=== PATIENT | male | born 1940 | race Caucasian/White ===

== ENCOUNTER 2018-01-22 09:48 | Emergency (ER) | payer MEDICARE, SELFPAY ==
[2018-01-22] VITALS (9 sets, daily range): BP systolic 108–136; BP diastolic 62–94; PULSE 55–85; RESP 13–17; TEMP 36.9; O2SAT 98–100; BMI 22.9
--- NOTE | 2018-01-22 09:56 | DI.RAD.S_ITS ---
PROCEDURE: XR CHEST 1V INDICATIONS: chest pain TECHNIQUE: One view of the chest was acquired. COMPARISON: [facility], CT, THORAX WITHOUT CONTRAST, 11/12/2016, 10:46. [facility], CR, CHEST 1 VIEW, 10/08/2016, 7:42. [facility], CR, CHEST 1 VIEW, 09/23/2016, 10:32. [facility], CR, CHEST 1 VIEW, 09/16/2016, 16:35. [facility], CR, CHEST 2 VIEW, 06/16/2013, 12:23. [facility], CR, CHEST 1 VIEW, 01/16/2011, 15:13. [facility], RG, XR CXR 2 VIEW, 10/17/2005, 15:46. [facility], CHEST 1 VIEW, 06/10/2017, 21:17. FINDINGS: Surgical changes and devices: None. Lungs and pleura: No pleural effusions or pneumothorax. Mild increased pulmonary vascularity is present. Mediastinum: Mediastinal contours appear normal. Heart size is normal. Bones and chest wall: No suspicious bony lesions. Overlying soft tissues appear unremarkable. IMPRESSION: Mild increased pulmonary vascularity suggestive of edema. Dictated by: Abby Hines M.D. on 01/22/2018 at 10:22 Approved by: Abby Hines M.D. on 01/22/2018 at 10:27
[2018-01-22] MEDS: SODIUM CHLORIDE 0.9% 1,000 ML 150 ML IV (10:28)
[2018-01-22] MEDS: ASPIRIN 81 MG TAB 324 MG PO (10:28)
[2018-01-22 10:29] LABS: Add Manual Diff / Slide Review NO; Basophils Percent Auto 1.4 % (0-2); Eosinophils Percent Auto 1.8 % (2-4); Hematocrit 42.9 % (41-53); Hemoglobin 14.9 g/dL (13.5-17.5); Lymphocytes Percent Auto 26.7 % (25-40); Mean Corpuscular HGB Conc 34.9 % (30-36); Mean Corpuscular Hemoglobin 33.1 PG (26-34); Mean Corpuscular Volume 94.8 fL (80-100); Monocytes Percent Auto 12.4 % (3-14); Neutrophils Absolute Auto 2600 /uL (3000-5900); Neutrophils Percent Auto 57.7 % (50-75); Platelet Count 197 X10^3/uL (150-400); Red Blood Cell Count 4.52 X10^6/uL (4.5-5.9); Red Cell Distribution Width 13.3 % (11.6-14.8); White Blood Cell Count 4.5 X10^3/uL (4.5-11.0)
[2018-01-22 10:40] LABS: HEMOLYSIS 25 (0-50)
[2018-01-22] MEDS: NITROGLYCERIN 0.4 MG SL TAB SL ×3 (10:40→11:08)
[2018-01-22 10:47] LABS: Alanine Aminotransferase 34 IU/L (21-72); Albumin 3.8 g/dL (3.5-5.0); Albumin Globulin Ratio 1.5 (1.0-2.8); Alkaline Phosphatase 54 U/L (38-126); Aspartate Aminotransferase 40 IU/L (17-59); BUN Creatinine Ratio 21.1 (6-22); Bilirubin Total 0.6 mg/dL (0.2-1.3); Calcium 8.9 mg/dL (8.4-10.2); Creatine Kinase 64 U/L (55-170); Estimated Glomerular Filt Rate > 60.0 mL/min (>60); Globulin 2.6 g/dL (1.7-4.1); Glucose 82 mg/dL (80-110); Lipase 158 U/L (23-300); Potassium 4.1 mmol/L (3.4-5.1); Sodium 139 mmol/L (137-145); Total Protein 6.4 g/dL (6.3-8.2)
--- NOTE | 2018-01-22 10:51 | PC.NURSE ---
Right sided chest tightness decreased to #4/10 after NTG 0.4mg SL
[2018-01-22 11:01] LABS: Troponin I < 0.012 ng/mL (0.01-0.034)
--- NOTE | 2018-01-22 11:50 | PC.NURSE ---
No change in chest tightness with second dose of NTG 0.4mg SL;
--- NOTE | 2018-01-22 11:52 | PC.NURSE ---
No change in chest tightness with third NTG 0.4mg SL;
--- NOTE | 2018-01-22 12:54 | ED_ITS ---
HPI - Chest Pain General Chief Complaint: Chest Pain Stated Complaint: chest pain Time Seen by Provider: 01/22/18 09:55 Source: patient Mode of arrival: ambulatory Limitations: no limitations History of Present Illness HPI narrative: Patient with longstanding cardiac history presents to the emergency department with chief complaint of chest pain with radiation to right shoulder which started while mowing the grass 2 days ago. At worst it was a 6 or 7/10 and continues to be a 5/10. He took some nitro at home yesterday which helped some but the pressure persists. His last heart catheterization was about a year ago when he had a stent placed at [facility] and a reocclusion of that stent about 2 months later. He has had no cardiac evaluation since then. He does admit to increasing exercise intolerance with worsening shortness of breath over about the past 4 months. Related Data Home Medications Medication Instructions Recorded Confirmed atorvastatin [Lipitor] 80 mg PO QPM #0 09/23/16 01/22/18 metoprolol succinate 50 mg PO QDAY #0 10/08/16 01/22/18 nitroglycerin [Nitrostat] 0.4 mg SUBLINGUAL PRN PRN #0 10/08/16 01/22/18 aspirin 81 mg PO QDAY #0 10/20/17 01/22/18 clopidogrel [Plavix] 75 mg PO QDAY #0 10/20/17 01/22/18 isosorbide dinitrate [Isordil 5 mg PO TID PRN #0 10/20/17 01/22/18 Titradose] omeprazole 20 mg PO BID #0 10/20/17 01/22/18 tamsulosin [Flomax] 0.4 mg PO QAM #0 10/20/17 01/22/18 Allergies Allergy/AdvReac Type Severity Reaction Status Date / Time No Known Allergies Allergy Verified 01/22/18 09:59 Review of Systems Review of Systems All systems reviewed & are unremarkable except as noted in HPI and below Constitutional Denies chills, Denies fever(s), Denies lethargy and Denies weakness ENT Ears, Nose, Mouth, and Throat: Denies change in voice, Denies neck pain and Denies sore throat Cardiovascular Reports chest pain, Denies irregular heart rhythm, Denies lightheadedness, Denies palpitations, Denies dyspnea, Denies dyspnea on exertion and Denies orthopnea Respiratory Denies cough, Denies dyspnea, Denies dyspnea on exertion and Denies wheezing Gastrointestinal Gastrointestinal: Denies abdominal pain, Denies change in bowel habits, Denies diarrhea, Denies nausea and Denies vomiting Genitourinary Denies hematuria, Denies flank pain, Denies urinary incontinence and Denies urinary urgency Musculoskeletal Denies neck pain Integumentary/Breasts Denies pruritus, Denies erythema, Denies rash and Denies wounds Neurologic Denies confusion and Denies weakness Psychiatric Denies anxiety, Denies confusion, Denies depression, Denies homicidal ideation and Denies suicidal ideation Endocrine Denies palpitations Allergic/Immunologic Denies wheezing PFSH Social History Smoking Status: Former smoker Exam Narrative Exam Narrative: Pleasant 77-year-old male in no obvious distress Initial Vital Signs Initial Vital Signs: Vital Signs Temperature 98.4 F 01/22/18 09:54 Pulse Rate 65 01/22/18 09:54 Respiratory Rate 14 01/22/18 09:54 Blood Pressure 136/72 H 01/22/18 09:54 Pulse Oximetry 100 01/22/18 09:54 Const General: cooperative and well developed Nutritional Appearance: well nourished Orientation: alert, awake, oriented x3 and not confused [facility] Head: normocephalic and atraumatic Ears: external ears normal and TM's normal bilaterally Nose: external nose normal and No nasal discharge Face and sinus: sinuses nontender, face symmetric, no sinus tenderness and No dry mucous membranes Mouth: oral mucosae normal and moist mucous membranes Teeth and gingiva: dentition normal Throat: tonsils normal and uvula midline Eyes General: appearance normal, both eyes and all related structures Eyelids: eyelids normal Conjunctivae: conjunctivae normal Sclera: sclerae normal Pupils: PERRL EOM: EOM intact bilaterally Chest Chest: normal inspection of the chest and normal palpation of entire chest wall Resp Effort & Inspection: normal respiratory effort, able to speak in complete sentences, no respiratory distress and no use of accessory muscles Auscultation: clear to auscultation bilaterally, no rales, no rhonchi and no wheezes Cardio Rate: regular rate Rhythm: regular rhythm Heart Sounds: no click, no gallops, no murmurs and no rubs Pulses: normal peripheral pulses Back/Spine/Pelvis Back: No CVA tenderness Cervical Spine: cervical ROM normal and No pain with cervical ROM Thoracic/Lumbar Spine: thoracic and lumbar spine normal to inspection Skin General: no rashes or lesions noted, No jaundice and No petechiae Neuro General: alert, oriented x3 and gait normal Speech: speech normal Sensory Exam: no sensory deficits noted Extrem General: full ROM, no clubbing, cyanosis or edema, no pedal edema and no calf tenderness Psych Appearance: well kempt Mental Status: mental status grossly normal Attitude: cooperative Thought Content: normal and suicidality Judgment: judgment good Course Orders Ordered: ED Orders 01/22/18 09:56 XR chest 1V Stat EKG-12 Lead Stat 01/22/18 10:20 Complete Blood Count AUTO DIFF Stat Comprehensive Metabolic Panel Stat Lipase Stat Magnesium Stat Troponin with CK Cardiac Panel Stat Discontinued Medications Aspirin (Aspirin Chew) 324 mg PO NOW ONE Stop: 01/22/18 09:56 Last Admin: 01/22/18 10:28 Dose: 324 mg Sodium Chloride (Normal Saline 0.9%) 1,000 mls @ 150 mls/hr IV CONT PADDY Last Infusion: 01/22/18 11:53 Dose: 0 mls/hr Admin: 01/22/18 10:28 Dose: 150 mls/hr Morphine Sulfate (Morphine) 4 mg IV NOW ONE Stop: 01/22/18 11:58 Last Admin: 01/22/18 11:59 Dose: Not Given Nitroglycerin (Nitrostat) 0.4 mg SL [id number] PRN PRN Reason: Chest Pain Last Admin: 01/22/18 11:08 Dose: 0.4 mg Admin: 01/22/18 10:53 Dose: 0.4 mg Admin: 01/22/18 10:40 Dose: 0.4 mg Reevaluation(s) Reevaluation #1: Patient pain from 6 down to 4 after 1st nitro Time: 10:56 Reevaluation #2: Discussion with Cardiology at [facility] whom know this patient well. We discussed the case at length including onset as well as other symptoms, complaints and physical exam. His symptoms have been present 2 days any has normal troponin and unchanged EKGs. Cardiology recommended outpatient stress test and will coordinate with the patient in the next 1-2 days Time: 12:56 Vital Signs - 8 hr 01/22/18 09:54 01/22/18 10:19 01/22/18 10:40 Temperature 98.4 F Pulse Rate 65 61 65 Respiratory Rate 14 13 Blood Pressure 136/72 H 130/94 H Blood Pressure [Left Arm] 128/76 H Pulse Oximetry 100 99 01/22/18 10:52 01/22/18 10:53 01/22/18 11:08 Temperature Pulse Rate 85 85 55 L Respiratory Rate 16 Blood Pressure 117/64 111/63 Blood Pressure [Left Arm] 117/63 Pulse Oximetry 100 01/22/18 11:35 01/22/18 12:33 01/22/18 13:22 Temperature Pulse Rate 58 L 55 L 60 Respiratory Rate 13 17 16 Blood Pressure 123/80 H Blood Pressure [Left Arm] 108/62 123/80 H Pulse Oximetry 100 98 98 MDM - Chest Pain Differential Diagnosis Likely stable angina, unstable angina pectoris, atypical chest pain, st elevation myocardial infarction, costochondritis and chest pain Medical Records Data Attestation: I reviewed the patient's medical records. Lab Data Result diagrams: 01/22/18 10:20 01/22/18 10:20 Lab Results 01/22/18 01/22/18 Range/Units 10:20 10:20 WBC 4.5 (4.5-11.0) X10^3/uL RBC 4.52 (4.5-5.9) X10^6/uL Hgb 14.9 (13.5-17.5) g/dL Hct 42.9 (41-53) % MCV 94.8 (80-100) fL MCH 33.1 (26-34) PG MCHC 34.9 (30-36) % RDW 13.3 (11.6-14.8) % Plt Count 197 (150-400) X10^3/uL Neut % (Auto) 57.7 (50-75) % Lymph % (Auto) 26.7 (25-40) % [place] % (Auto) 12.4 (3-14) % Eos % (Auto) 1.8 L (2-4) % Baso % (Auto) 1.4 (0-2) % Neut # (Auto) 2600 L (9158-4684) /uL Sodium 139 (137-145) mmol/L Potassium 4.1 (3.4-5.1) mmol/L Chloride 103.0 (98-107) mmol/L Carbon Dioxide 28.0 (22-32) mmol/L BUN 19.0 (9-20) mg/dL Creatinine 0.90 (0.66-1.25) mg/dL Estimated GFR > 60.0 (>60) mL/min BUN/Creatinine Ratio 21.1 (6-22) Glucose 82 (80-110) mg/dL Calcium 8.9 (8.4-10.2) mg/dL Magnesium 2.0 (1.6-2.3) mg/dL Total Bilirubin 0.6 (0.2-1.3) mg/dL AST 40 (17-59) IU/L ALT 34 (21-72) IU/L Alkaline Phosphatase 54 (38-126) U/L Total Creatine Kinase 64 (55-170) U/L Troponin I < 0.012 (0.01-0.034) ng/mL Total Protein 6.4 (6.3-8.2) g/dL Albumin 3.8 (3.5-5.0) g/dL Globulin 2.6 (1.7-4.1) g/dL Albumin/Globulin Ratio 1.5 (1.0-2.8) Lipase 158 (23-300) U/L ECG Data Attestation: I personally reviewed and interpreted this ECG as follows: Prior ECG tracings: not available for review Interpretation: Normal sinus rhythm without obvious signs of ischemia or ectopy. No ST segmental or T-wave inversions. No hyperacute T-waves EKG #2: unchanged MDM Narrative Medical decision making narrative: Patient has had chest pain for 2 days and still has normal enzymes and EKG. His auto phone installer will see him as an outpatient in the next 1-2 days for outpatient stress test Discharge Plan Departure Patient Disposition: Home, Self-Care Clinical Impression: Chest pain Discharge Date/Time: 01/22/18 13:23 Interventions: ED Discharge Assessment Last Done: 01/22/18 13:22 Instructions: DI for Chest Pain Activity Restrictions/Additional Instructions: I spoke with your auto phone installer today and his office will contact you today or tomorrow to schedule an outpatient stress test. Additionally he wanted me to increase your isosorbide from 5 mg 3 times a day up to 10 mg 3 times per day. Please take other medications as directed Please return to the emergency department immediately for any worsening or persistent symptoms Prescriptions: No Action atorvastatin [Lipitor] 80 MG tablet 80 mg PO QPM Qty: 0 RF: 0 metoprolol succinate 50 MG tablet extended release 24 hr 50 mg PO QDAY Qty: 0 RF: 0 nitroglycerin [Nitrostat] 0.4 MG tablet, sublingual 0.4 mg Sublingual PRN PRN (Reason: Chest Pain) Qty: 0 RF: 0 omeprazole 20 MG capsule,delayed release(DR/EC) 20 mg PO BID Qty: 0 RF: 0 clopidogrel [Plavix] 75 MG tablet 75 mg PO QDAY Qty: 0 RF: 0 aspirin 81 MG tablet,delayed release (DR/EC) 81 mg PO QDAY Qty: 0 RF: 0 tamsulosin [Flomax] 0.4 MG capsule,extended release 24hr 0.4 mg PO QAM Qty: 0 RF: 0 isosorbide dinitrate [Isordil Titradose] 5 MG tablet 5 mg PO TID PRN (Reason: Chest Pain) Qty: 0 RF: 0
== END 2018-01-22 13:23 | disposition home or self-care (01) ==
PROVIDERS: Emergency Provider Emergency Medicine; Family Provider Family Medicine; PCP Family Medicine
DX: R07.9 Chest pain, unspecified (principal)
CPT/HCPCS: 36591; 71045; 80053; 81003; 82550; 82553; 83690; 83735; 84484; 85025; 93005; 93041; 96361; 96374; 99285

== ENCOUNTER 2018-10-13 10:42 | Emergency (ER) | payer MEDICARE, SELFPAY ==
[2018-10-13 10:47] VITALS: BP 147/86; PULSE 61; RESP 13; TEMP 36.3; O2SAT 99
[2018-10-13 10:54] VITALS: BP 160/85; PULSE 61; RESP 12; TEMP 36.5; O2SAT 100
--- NOTE | 2018-10-13 10:54 | DI.RAD.S_ITS ---
PROCEDURE: XR CHEST 1V INDICATIONS: chest pain TECHNIQUE: One view of the chest was acquired. COMPARISON: [facility], CR, XR CHEST 1V, 01/22/2018, 9:59. FINDINGS: Surgical changes and devices: None. Lungs and pleura: Lungs are clear. No pleural effusions or pneumothorax. Mediastinum: Mediastinal contours appear normal. Heart size is normal. There is mild aortic atherosclerosis. Bones and chest wall: No suspicious bony lesions. Overlying soft tissues appear unremarkable. IMPRESSION: Stable chest. No acute cardiopulmonary process is evident. Dictated by: Aram Matias M.D. on 10/13/2018 at 10:15 Approved by: Aram Matias M.D. on 10/13/2018 at 10:15
[2018-10-13 11:10] LABS: Add Manual Diff / Slide Review NO; Basophils Absolute Auto 100 /uL (0-100); Basophils Percent Auto 1.2 % (0-2); Eosinophils Absolute Auto 100 /uL (0-450); Eosinophils Percent Auto 1.2 % (2-4); Hematocrit 42.7 % (41-53); Hemoglobin 14.4 g/dL (13.5-17.5); Lymphocytes Absolute Auto 1400 /uL (1100-4500); Lymphocytes Percent Auto 27.1 % (25-40); Mean Corpuscular HGB Conc 33.8 % (30-36); Mean Corpuscular Volume 94.6 fL (80-100); Monocytes Absolute Auto 400 /uL (0-900); Monocytes Percent Auto 7.6 % (3-14); Neutrophils Absolute Auto 3300 /uL (1500-7000); Neutrophils Percent Auto 62.9 % (50-75); Platelet Count 223 X10^3/uL (150-400); Red Blood Cell Count 4.51 X10^6/uL (4.5-5.9); Red Cell Distribution Width 12.9 % (11.6-14.8); White Blood Cell Count 5.3 X10^3/uL (4.5-11.0)
[2018-10-13 11:18] LABS: INR 1.1 (0.9-1.3); Prothrombin Time 12.3 SECONDS (10.1-12.7)
[2018-10-13 11:21] LABS: Alanine Aminotransferase 34 IU/L (21-72); Albumin 4.3 g/dL (3.5-5.0); Albumin Globulin Ratio 1.8 (1.0-2.8); Alkaline Phosphatase 51 U/L (38-126); Aspartate Aminotransferase 32 IU/L (17-59); Bilirubin Total 0.4 mg/dL (0.2-1.3); Blood Urea Nitrogen 24 mg/dL (9-20); Calcium 9.2 mg/dL (8.4-10.2); Carbon Dioxide 27 mmol/L (22-32); Chloride 104 mmol/L (98-107); Creatine Kinase 70 U/L (55-170); Estimated Glomerular Filt Rate > 60.0 mL/min (>60); Globulin 2.4 g/dL (1.7-4.1); Glucose 92 mg/dL (80-110); HEMOLYSIS 21 (0-50); Lipase 176 U/L (23-300); PTT Partial Thromboplastin Tim 29 SECONDS (26.4-36.2); Potassium 3.9 mmol/L (3.4-5.1); Sodium 138 mmol/L (137-145); Total Protein 6.7 g/dL (6.3-8.2)
--- NOTE | 2018-10-13 11:30 | ED.CHESTPAIN ---
HPI - Chest Pain General Chief Complaint: Chest Pain Stated Complaint: CHEST PAIN Time Seen by Provider: 10/13/18 10:50 Source: patient Mode of arrival: ambulatory Limitations: no limitations History of Present Illness HPI narrative: 77-year-old male with known cardiac history presents at the request of his yeast fermentation attendant for evaluation and stabilization of worsening cardiac type symptoms. The patient states that for the past 2 weeks or so he has had increasing chest pain with exertion and now chest pain at rest. His pain radiates to his right and sometimes left shoulder. He mowed the lawn a few days ago and took him nearly 3 hr to recuperate. He had been taking multiple nitro per day which in the end did help his pain. He was seen by his yeast fermentation attendant a few days ago and started on long-acting nitro which is providing little to no relief. He presents today with 7/10 anterior chest pressure with radiation to his right shoulder. He denies any current dizziness diaphoresis or vomiting. MD complaint: chest pain Onset (ago): week(s) Duration: intermittent Onset: during rest and during exertion Pain location: substernal Severity scale (1-10): 7 Quality: aching and heaviness Pain radiation: RUE Relieving factors: nothing Exacerbating factors: exertion Treatments prior to arrival chest pain: aspirin and nitroglycerin Related Data Home Medications Medication Instructions Recorded Confirmed atorvastatin [Lipitor] 80 mg PO BEDTIME #0 09/23/16 10/13/18 metoprolol succinate 25 mg PO DAILY #0 10/08/16 10/13/18 nitroglycerin [Nitrostat] 0.4 mg SUBLINGUAL PRN PRN #0 10/08/16 10/13/18 aspirin 81 mg PO DAILY #0 10/20/17 10/13/18 clopidogrel [Plavix] 75 mg PO DAILY #0 10/20/17 10/13/18 isosorbide dinitrate [Isordil 5 mg PO BID #0 10/20/17 10/13/18 Titradose] omeprazole 20 mg PO DAILY #0 10/20/17 10/13/18 tamsulosin [Flomax] 0.4 mg PO QPM #0 10/20/17 10/13/18 Allergies Allergy/AdvReac Type Severity Reaction Status Date / Time No Known Allergies Allergy Verified 01/22/18 09:59 Review of Systems Constitutional Denies chills, Denies fever(s), Denies lethargy and Denies weakness Eyes Denies change in vision, Denies eye discharge, Denies irritation and Denies loss of vision ENT Ears, Nose, Mouth, and Throat: Denies change in voice, Denies neck pain and Denies sore throat Cardiovascular Reports chest pain, Denies irregular heart rhythm, Denies lightheadedness, Denies palpitations, Denies dyspnea, Denies dyspnea on exertion and Denies orthopnea Respiratory Denies cough, Denies dyspnea, Denies dyspnea on exertion and Denies wheezing Gastrointestinal Gastrointestinal: Denies abdominal pain, Denies change in bowel habits, Denies diarrhea, Denies nausea and Denies vomiting Genitourinary Denies hematuria, Denies flank pain, Denies urinary incontinence and Denies urinary urgency Musculoskeletal Denies neck pain Integumentary/Breasts Denies pruritus, Denies erythema, Denies rash and Denies wounds Neurologic Denies confusion, Denies loss of vision and Denies weakness Psychiatric Denies anxiety, Denies confusion, Denies depression, Denies homicidal ideation and Denies suicidal ideation Endocrine Denies palpitations Hematologic/Lymphatic Denies easy bruising Allergic/Immunologic Denies wheezing [facility] Social History Smoking Status: Former smoker Social History Smoking Status: Former smoker Exam Narrative Exam Narrative: GENERAL: This is a well-nourished, well-developed patient, in mild distress. HEAD: Atraumatic. Normocephalic. No temporal or scalp tenderness. EYES: Pupils equal round and reactive. Extraocular motions intact. No scleral icterus. No injection or drainage. ENT: Nose without bleeding, purulent drainage or septal hematoma. Throat without erythema, tonsillar hypertrophy or exudate. Uvula midline. Airway patent. NECK: Trachea midline. No JVD or lymphadenopathy. Supple, nontender, no meningeal signs. CARDIOVASCULAR: Regular rate and rhythm without murmurs, gallops, or rubs. RESPIRATORY: Clear to auscultation. Breath sounds equal bilaterally. No wheezes, rales, or rhonchi. GASTROINTESTINAL: Abdomen soft, non-tender, nondistended. No hepato-splenomegaly, or palpable masses. No guarding. EXTREMITIES: No clubbing, cyanosis, or edema. No joint tenderness, effusion, or edema noted. BACK: Nontender without deformity or crepitance. No flank tenderness. NEURO: AOx3. SKIN: No rash or erythema. Initial Vital Signs Initial Vital Signs: Vital Signs Temperature 97.3 F L 10/13/18 10:47 Pulse Rate 61 10/13/18 10:47 Respiratory Rate 13 10/13/18 10:47 Blood Pressure 147/86 H 10/13/18 10:47 Pulse Oximetry 99 10/13/18 10:47 Course Orders Ordered: ED Orders 10/13/18 10:48 EKG-12 Lead Stat 10/13/18 10:54 XR chest 1V Stat 10/13/18 11:00 Complete Blood Count AUTO DIFF Stat Comprehensive Metabolic Panel Stat Lipase Stat Partial Thromboplastin Time Stat Prothrombin Time INR Stat Troponin & CK Cardiac Panel Stat 10/13/18 12:03 EKG-12 Lead Routine Discontinued Medications Heparin Sodium (Porcine) (Heparin) 6,000 unit 80 unit/kg (6000 unit) IV NOW ONE Stop: 10/13/18 11:53 Last Admin: 10/13/18 12:20 Dose: 6,000 unit Nitroglycerin (Nitroglycerin) 50 mg in 250 mls @ 1.5 mls/hr IV TITRATE PADDY; Protocol Last Titration: 10/13/18 15:13 Dose: 5 mcg/min, 1.5 mls/hr Admin: 10/13/18 12:57 Dose: 5 mcg/min, 1.5 mls/hr Sodium Chloride (Normal Saline 0.9%) 500 mls @ 21 mls/hr IV CONT PADDY Last Admin: 10/13/18 13:17 Dose: Reevaluation(s) Reevaluation #1: patient continues to have pain. Second IV, heparin/nitro ordered. Second EKG. Call to [facility] with need for transfer Consultations Consultation #1: call to cardio at [facility] whom are happy to accept and request NG drip, but state Heparin does not need to be continued Vital Signs - 8 hr 10/13/18 14:18 10/13/18 14:19 Pulse Rate 61 Blood Pressure [Left Arm] 133/93 H Pulse Oximetry 100 MDM - Chest Pain Lab Data Result diagrams: 10/13/18 11:00 10/13/18 11:00 Lab Results 10/13/18 10/13/18 10/13/18 Range/Units 11:00 11:00 11:00 WBC 5.3 (4.5-11.0) X10^3/uL RBC 4.51 (4.5-5.9) X10^6/uL Hgb 14.4 (13.5-17.5) g/dL Hct 42.7 (41-53) % MCV 94.6 (80-100) fL MCH 32.0 (26-34) PG MCHC 33.8 (30-36) % RDW 12.9 (11.6-14.8) % Plt Count 223 (150-400) X10^3/uL Neut % (Auto) 62.9 (50-75) % Lymph % (Auto) 27.1 (25-40) % [place] % (Auto) 7.6 (3-14) % Eos % (Auto) 1.2 L (2-4) % Baso % (Auto) 1.2 (0-2) % Neut # (Auto) 3300 (7500-5659) /uL Lymph # (Auto) 1400 (2457-3383) /uL [place] # (Auto) 400 (0-900) /uL Eos # (Auto) 100 (0-450) /uL Baso # (Auto) 100 (0-100) /uL PT 12.3 (10.1-12.7) SECONDS INR 1.1 (0.9-1.3) APTT 29 (26.4-36.2) SECONDS Sodium 138 (137-145) mmol/L Potassium 3.9 (3.4-5.1) mmol/L Chloride 104 (98-107) mmol/L Carbon Dioxide 27 (22-32) mmol/L BUN 24 H (9-20) mg/dL Creatinine 1.00 (0.66-1.25) mg/dL Estimated GFR > 60.0 (>60) mL/min BUN/Creatinine Ratio 24.0 H (6-22) Glucose 92 (80-110) mg/dL Calcium 9.2 (8.4-10.2) mg/dL Total Bilirubin 0.4 (0.2-1.3) mg/dL AST 32 (17-59) IU/L ALT 34 (21-72) IU/L Alkaline Phosphatase 51 (38-126) U/L Total Creatine Kinase 70 (55-170) U/L CK-MB (CK-2) TNP CK-MB (CK-2) Rel Index TNP Troponin I < 0.012 (0.01-0.034) ng/mL Total Protein 6.7 (6.3-8.2) g/dL Albumin 4.3 (3.5-5.0) g/dL Globulin 2.4 (1.7-4.1) g/dL Albumin/Globulin Ratio 1.8 (1.0-2.8) Lipase 176 (23-300) U/L Discharge Plan Departure Patient Disposition: [facility] Clinical Impression: Unstable angina Discharge Date/Time: 10/13/18 15:15 Interventions: ED Discharge Assessment Last Done: 10/13/18 15:15 Prescriptions: No Action atorvastatin [Lipitor] 80 MG tablet 80 mg PO BEDTIME Qty: 0 RF: 0 metoprolol succinate 50 MG tablet extended release 24 hr 25 mg PO DAILY Qty: 0 RF: 0 nitroglycerin [Nitrostat] 0.4 MG tablet, sublingual 0.4 mg Sublingual PRN PRN (Reason: Chest Pain) Qty: 0 RF: 0 omeprazole 20 MG capsule,delayed release(DR/EC) 20 mg PO DAILY Qty: 0 RF: 0 clopidogrel [Plavix] 75 MG tablet 75 mg PO DAILY Qty: 0 RF: 0 aspirin 81 MG tablet,delayed release (DR/EC) 81 mg PO DAILY Qty: 0 RF: 0 tamsulosin [Flomax] 0.4 MG capsule,extended release 24hr 0.4 mg PO QPM Qty: 0 RF: 0 isosorbide dinitrate [Isordil Titradose] 5 MG tablet 5 mg PO BID Qty: 0 RF: 0
[2018-10-13 11:33] LABS: Troponin I < 0.012 ng/mL (0.01-0.034)
--- NOTE | 2018-10-13 11:35 | ED_ITS ---
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 The patient states that for the past 2 weeks or so he has had increasing chest pain with exertion and now chest pain at rest. His pain radiates to his right and sometimes left shoulder. He mowed the lawn a few days ago and took him nearly 3 hr to recuperate. He had been taking multiple nitro per day which in the end did help his pain. He was seen by his office mail clerk a few days ago and started on long-acting nitro which is providing little to no relief. He presents today with 7/10 anterior chest pressure with radiation to his right shoulder. He denies any current dizziness diaphoresis or vomiting. MD complaint: chest pain Onset (ago): week(s) Duration: intermittent Onset: during rest and during exertion Pain location: substernal Severity scale (1-10): 7 Quality: aching and heaviness Pain radiation: RUE Relieving factors: nothing Exacerbating factors: exertion Treatments prior to arrival chest pain: aspirin and nitroglycerin Related Data Home Medications Medication Instructions Recorded Confirmed atorvastatin [Lipitor] 80 mg PO BEDTIME #0 09/23/16 10/13/18 metoprolol succinate 25 mg PO DAILY #0 10/08/16 10/13/18 nitroglycerin [Nitrostat] 0.4 mg SUBLINGUAL PRN PRN #0 10/08/16 10/13/18 aspirin 81 mg PO DAILY #0 10/20/17 10/13/18 clopidogrel [Plavix] 75 mg PO DAILY #0 10/20/17 10/13/18 isosorbide dinitrate [Isordil 5 mg PO BID #0 10/20/17 10/13/18 Titradose] omeprazole 20 mg PO DAILY #0 10/20/17 10/13/18 tamsulosin [Flomax] 0.4 mg PO QPM #0 10/20/17 10/13/18 Allergies Allergy/AdvReac Type Severity Reaction Status Date / Time No Known Allergies Allergy Verified 01/22/18 09:59 Review of Systems Constitutional Denies chills, Denies fever(s), Denies lethargy and Denies weakness Eyes Denies change in vision, Denies eye discharge, Denies irritation and Denies loss of vision ENT Ears, Nose, Mouth, and Throat: Denies change in voice, Denies neck pain and Denies sore throat Cardiovascular Reports chest pain, Denies irregular heart rhythm, Denies lightheadedness, Denies palpitations, Denies dyspnea, Denies dyspnea on exertion and Denies orthopnea Respiratory Denies cough, Denies dyspnea, Denies dyspnea on exertion and Denies wheezing Gastrointestinal Gastrointestinal: Denies abdominal pain, Denies change in bowel habits, Denies diarrhea, Denies nausea and Denies vomiting Genitourinary Denies hematuria, Denies flank pain, Denies urinary incontinence and Denies urinary urgency Musculoskeletal Denies neck pain Integumentary/Breasts Denies pruritus, Denies erythema, Denies rash and Denies wounds Neurologic Denies confusion, Denies loss of vision and Denies weakness Psychiatric Denies anxiety, Denies confusion, Denies depression, Denies homicidal ideation and Denies suicidal ideation Endocrine Denies palpitations Hematologic/Lymphatic Denies easy bruising Allergic/Immunologic Denies wheezing PENDING SALE TO [facility] Social History Smoking Status: Former smoker Social History Smoking Status: Former smoker Exam Narrative Exam Narrative: GENERAL: This is a well-nourished, well-developed patient, in mild distress. HEAD: Atraumatic. Normocephalic. No temporal or scalp tenderness. EYES: Pupils equal round and reactive. Extraocular motions intact. No scleral icterus. No injection or drainage. ENT: Nose without bleeding, purulent drainage or septal hematoma. Throat without erythema, tonsillar hypertrophy or exudate. Uvula midline. Airway patent. NECK: Trachea midline. No JVD or lymphadenopathy. Supple, nontender, no meningeal signs. CARDIOVASCULAR: Regular rate and rhythm without murmurs, gallops, or rubs. RESPIRATORY: Clear to auscultation. Breath sounds equal bilaterally. No wheezes , rales, or rhonchi. GASTROINTESTINAL: Abdomen soft, non-tender, nondistended. No hepato-splenomegaly , or palpable masses. No guarding. EXTREMITIES: No clubbing, cyanosis, or edema. No joint tenderness, effusion, or edema noted. BACK: Nontender without deformity or crepitance. No flank tenderness. NEURO: AOx3. SKIN: No rash or erythema. Initial Vital Signs Initial Vital Signs: Vital Signs Temperature 97.3 F L 10/13/18 10:47 Pulse Rate 61 10/13/18 10:47 Respiratory Rate 13 10/13/18 10:47 Blood Pressure 147/86 H 10/13/18 10:47 Pulse Oximetry 99 10/13/18 10:47 Course Orders Ordered: ED Orders 10/13/18 10:48 EKG-12 Lead Stat 10/13/18 10:54 XR chest 1V Stat 10/13/18 11:00 Complete Blood Count AUTO DIFF Stat Comprehensive Metabolic Panel Stat Lipase Stat Partial Thromboplastin Time Stat Prothrombin Time INR Stat Troponin & CK Cardiac Panel Stat 10/13/18 12:03 EKG-12 Lead Routine Discontinued Medications Heparin Sodium (Porcine) (Heparin) 6,000 unit 80 unit/kg (6000 unit) IV NOW ONE Stop: 10/13/18 11:53 Last Admin: 10/13/18 12:20 Dose: 6,000 unit Nitroglycerin (Nitroglycerin) 50 mg in 250 mls @ 1.5 mls/hr IV TITRATE PADDY; Protocol Last Titration: 10/13/18 15:13 Dose: 5 mcg/min, 1.5 mls/hr Admin: 10/13/18 12:57 Dose: 5 mcg/min, 1.5 mls/hr Sodium Chloride (Normal Saline 0.9%) 500 mls @ 21 mls/hr IV CONT PADDY Last Admin: 10/13/18 13:17 Dose: Reevaluation(s) Reevaluation #1: patient continues to have pain. Second IV, heparin/nitro ordered. Second EKG. Call to [facility] with need for transfer Consultations Consultation #1: call to cardio at [facility] whom are happy to accept and request NG drip, but state Heparin does not need to be continued Vital Signs - 8 hr 10/13/18 14:18 10/13/18 14:19 Pulse Rate 61 Blood Pressure [Left Arm] 133/93 H Pulse Oximetry 100 MDM - Chest Pain Lab Data Result diagrams: 10/13/18 11:00 10/13/18 11:00 Lab Results 10/13/18 10/13/18 10/13/18 Range/Units 11:00 11:00 11:00 WBC 5.3 (4.5-11.0) X10^3/uL RBC 4.51 (4.5-5.9) X10^6/uL Hgb 14.4 (13.5-17.5) g/dL Hct 42.7 (41-53) % MCV 94.6 (80-100) fL MCH 32.0 (26-34) PG MCHC 33.8 (30-36) % RDW 12.9 (11.6-14.8) % Plt Count 223 (150-400) X10^3/uL Neut % (Auto) 62.9 (50-75) % Lymph % (Auto) 27.1 (25-40) % [place] % (Auto) 7.6 (3-14) % Eos % (Auto) 1.2 L (2-4) % Baso % (Auto) 1.2 (0-2) % Neut # (Auto) 3300 (9153-7750) /uL Lymph # (Auto) 1400 (4564-7376) /uL [place] # (Auto) 400 (0-900) /uL Eos # (Auto) 100 (0-450) /uL Baso # (Auto) 100 (0-100) /uL PT 12.3 (10.1-12.7) SECONDS INR 1.1 (0.9-1.3) APTT 29 (26.4-36.2) SECONDS Sodium 138 (137-145) mmol/L Potassium 3.9 (3.4-5.1) mmol/L Chloride 104 (98-107) mmol/L Carbon Dioxide 27 (22-32) mmol/L BUN 24 H (9-20) mg/dL Creatinine 1.00 (0.66-1.25) mg/dL Estimated GFR > 60.0 (>60) mL/min BUN/Creatinine Ratio 24.0 H (6-22) Glucose 92 (80-110) mg/dL Calcium 9.2 (8.4-10.2) mg/dL Total Bilirubin 0.4 (0.2-1.3) mg/dL AST 32 (17-59) IU/L ALT 34 (21-72) IU/L Alkaline Phosphatase 51 (38-126) U/L Total Creatine Kinase 70 (55-170) U/L CK-MB (CK-2) TNP CK-MB (CK-2) Rel Index TNP Troponin I < 0.012 (0.01-0.034) ng/mL Total Protein 6.7 (6.3-8.2) g/dL Albumin 4.3 (3.5-5.0) g/dL Globulin 2.4 (1.7-4.1) g/dL Albumin/Globulin Ratio 1.8 (1.0-2.8) Lipase 176 (23-300) U/L Discharge Plan Departure Patient Disposition: [facility] Clinical Impression: Unstable angina Discharge Date/Time: 10/13/18 15:15 Interventions: ED Discharge Assessment Last Done: 10/13/18 15:15 Prescriptions: No Action atorvastatin [Lipitor] 80 MG tablet 80 mg PO BEDTIME Qty: 0 RF: 0 metoprolol succinate 50 MG tablet extended release 24 hr 25 mg PO DAILY Qty: 0 RF: 0 nitroglycerin [Nitrostat] 0.4 MG tablet, sublingual 0.4 mg Sublingual PRN PRN (Reason: Chest Pain) Qty: 0 RF: 0 omeprazole 20 MG capsule,delayed release(DR/EC) 20 mg PO DAILY Qty: 0 RF: 0 clopidogrel [Plavix] 75 MG tablet 75 mg PO DAILY Qty: 0 RF: 0 aspirin 81 MG tablet,delayed release (DR/EC) 81 mg PO DAILY Qty: 0 RF: 0 tamsulosin [Flomax] 0.4 MG capsule,extended release 24hr 0.4 mg PO QPM Qty: 0 RF: 0 isosorbide dinitrate [Isordil Titradose] 5 MG tablet 5 mg PO BID Qty: 0 RF: 0
[2018-10-13] MEDS: HEPARIN 5,000 UNIT/ML VIAL 6000 UNIT IV (12:20)
[2018-10-13] MEDS: NITROGLYCERIN 50 MG/250 ML INFUS..BTL IV (12:57)
[2018-10-13 14:18] VITALS: PULSE 61; O2SAT 100
[2018-10-13 14:19] VITALS: BP 133/93
== END 2018-10-13 15:15 | disposition short-term general hospital (02) ==
PROVIDERS: Emergency Provider Emergency Medicine; Family Provider Family Medicine; PCP Family Medicine
DX: I20.0 Unstable angina (principal)
CPT/HCPCS: 36591; 71045; 80053; 82550; 83690; 84484; 85025; 85610; 85730; 93005; 96365; 96366; 96375; 99284; 99285; J1644

== ENCOUNTER 2018-11-16 10:41 | Emergency (ER) | payer MEDICARE, SELFPAY ==
--- NOTE | 2018-11-16 10:52 | ED.NEUROSD ---
HPI - Neuro Symptoms/Deficit General Chief Complaint: Syncope Stated Complaint: Dypohorectic vomiting Time Seen by Provider: 11/16/18 10:50 Source: family and EMS Mode of arrival: EMS Limitations: no limitations History of Present Illness HPI Narrative: Patient is a 78-year-old male who presents after near syncopal episode. He had CABG 3 weeks ago at [facility]. Today he was getting his toenails trimmed. He said he was wearing his coat which was very hot he also gets a motion sickness in the car he was already feeling nauseated when he sat down. He got extremely hot and clammy almost passed out. They have been adjusting some of his medications since surgery. Including the Toprol Lasix and tamsulosin. He said he took tamsulosin last night, thought maybe he was a little dehydrated. He denies any peripheral edema swelling shortness of breath or orthopnea. He overall is feeling much better. He had no facial drooping slurring of speech or focal deficits. He just got extremely lightheaded and vomited once. He no longer feels nauseated. No abdominal pain. Onset (ago): minute(s) Related Data Home Medications Medication Instructions Recorded Confirmed atorvastatin [Lipitor] 80 mg PO BEDTIME #0 09/23/16 11/16/18 metoprolol succinate 25 mg PO DAILY #0 10/08/16 11/16/18 nitroglycerin [Nitrostat] 0.4 mg SUBLINGUAL PRN PRN #0 10/08/16 11/16/18 aspirin 81 mg PO DAILY #0 10/20/17 11/16/18 clopidogrel [Plavix] 75 mg PO DAILY #0 10/20/17 11/16/18 isosorbide dinitrate [Isordil 5 mg PO BID #0 10/20/17 11/16/18 Titradose] omeprazole 20 mg PO DAILY #0 10/20/17 11/16/18 tamsulosin [Flomax] 0.4 mg PO QPM #0 10/20/17 11/16/18 Allergies Allergy/AdvReac Type Severity Reaction Status Date / Time No Known Allergies Allergy Verified 11/16/18 11:02 Review of Systems Review of Systems ROS Unobtainable: All systems reviewed & are unremarkable except as noted in HPI and below Constitutional Denies chills, Denies fever(s), Denies lethargy and Denies weakness Eyes Denies change in vision, Denies eye discharge, Denies irritation and Denies loss of vision ENT Ears, Nose, Mouth, and Throat: Denies dizziness Cardiovascular Reports as per HPI, Denies dyspnea and Denies dyspnea on exertion Respiratory Denies cough, Denies dyspnea, Denies dyspnea on exertion and Denies wheezing Gastrointestinal Gastrointestinal: Reports vomiting (x1) Genitourinary Denies hematuria, Denies flank pain, Denies urinary incontinence and Denies urinary urgency Musculoskeletal Denies back pain, Denies muscle weakness, Denies numbness and Denies tingling Integumentary/Breasts Denies pruritus, Denies erythema, Denies rash and Denies wounds Neurologic Reports as per HPI, Denies dizziness, Denies loss of vision, Denies numbness, Denies tingling and Denies weakness Allergic/Immunologic Denies wheezing [facility] Medical History BPH (benign prostatic hyperplasia) (Acute) Coronary artery disease (Acute) Surgical History S/P CABG x 3 (Acute) Social History Smoking Status: Former smoker Social History Smoking Status: Former smoker Exam Initial Vital Signs Initial Vital Signs: Vital Signs Temperature 96.7 F L 11/16/18 10:56 Pulse Rate 61 11/16/18 10:56 Respiratory Rate 14 11/16/18 10:56 Blood Pressure 123/74 11/16/18 10:56 Pulse Oximetry 98 11/16/18 10:56 GENERAL: Alert well-appearing male slightly diaphoretic but does seem to be improving HEENT: Head atraumatic,EOMI, pupils reactive CARDIOVASCULAR: Regular rate and rhythm without murmurs, rubs or gallops. RESPIRATORY: Breath sounds equal bilaterally, no wheezes rales or rhonchi. ABDOMEN: Soft, nontender. Normoactive bowel sounds all 4 quadrants. No guarding or rebound. EXTREMITIES: Normal range of motion, no clubbing or edema. Neurovascularly intact NEUROLOGICAL: Alert and oriented x4.Normal gait and speech. Cranial nerves II through XII grossly intact. Good [id number], good [id number], strength equal bilaterally, no dysarthria or aphasia, sensation in tact to soft touch bilaterally, no visual changes, no facial droop SKIN: Contusion noted all across chest. Patient says it seems to be healing. He also has incision site with 3 sutures is also no sign of infection no erythema or pus. Course Orders Ordered: ED Orders 11/16/18 10:42 B Type Natriuretic Peptide Stat Complete Blood Count AUTO DIFF Stat Comprehensive Metabolic Panel Stat Lipase Stat Partial Thromboplastin Time Stat Prothrombin Time INR Stat Troponin & CK Cardiac Panel Stat 11/16/18 10:52 XR chest 1V Stat 11/16/18 12:54 Troponin I Stat Discontinued Medications Sodium Chloride (Normal Saline 0.9%) 1,000 mls @ 150 mls/hr IV CONT PADDY Last Infusion: 11/16/18 14:27 Dose: 0 mls/hr Admin: 11/16/18 11:17 Dose: 150 mls/hr Vital Signs - 8 hr 11/16/18 12:01 11/16/18 12:30 11/16/18 13:00 Pulse Rate 57 L 57 L 59 L Respiratory Rate 16 16 14 Blood Pressure [Right Arm] 107/61 116/65 120/66 Pulse Oximetry 97 98 95 11/16/18 13:30 Pulse Rate 58 L Respiratory Rate 12 Blood Pressure [Right Arm] 118/70 Pulse Oximetry 94 MDM - Neuro Symptoms/Deficit Lab Data Attestation: I reviewed the patient's lab results. Result diagrams: 11/16/18 10:42 11/16/18 10:42 Lab Results 11/16/18 11/16/18 11/16/18 Range/Units 10:42 10:42 10:42 WBC 5.4 (4.5-11.0) X10^3/uL RBC 3.70 L (4.5-5.9) X10^6/uL Hgb 12.0 L (13.5-17.5) g/dL Hct 35.9 L (41-53) % MCV 97.0 (80-100) fL MCH 32.6 (26-34) PG MCHC 33.6 (30-36) % RDW 16.0 H (11.6-14.8) % Plt Count 351 (150-400) X10^3/uL Neut % (Auto) 70.5 (50-75) % Lymph % (Auto) 15.8 L (25-40) % [place] % (Auto) 8.8 (3-14) % Eos % (Auto) 2.7 (2-4) % Baso % (Auto) 2.2 H (0-2) % Neut # (Auto) 3800 (4822-3933) /uL Lymph # (Auto) 900 L (2805-0116) /uL [place] # (Auto) 500 (0-900) /uL Eos # (Auto) 100 (0-450) /uL Baso # (Auto) 100 (0-100) /uL PT 18.5 H (10.1-12.7) SECONDS INR 1.6 H (0.9-1.3) APTT 28 (26.4-36.2) SECONDS Sodium 139 (137-145) mmol/L Potassium 3.9 (3.4-5.1) mmol/L Chloride 102 (98-107) mmol/L Carbon Dioxide 27 (22-32) mmol/L BUN 19 (9-20) mg/dL Creatinine 1.20 (0.66-1.25) mg/dL Estimated GFR 58.7 L (>60) mL/min BUN/Creatinine Ratio 15.8 (6-22) Glucose 115 H (80-110) mg/dL Calcium 9.0 (8.4-10.2) mg/dL Total Bilirubin 0.4 (0.2-1.3) mg/dL AST 27 (17-59) IU/L ALT 41 (21-72) IU/L Alkaline Phosphatase 83 (38-126) U/L Total Creatine Kinase 37 L (55-170) U/L CK-MB (CK-2) TNP CK-MB (CK-2) Rel Index TNP Troponin I 0.069 H (0.01-0.034) ng/mL B-Natriuretic Peptide < 100 (<100) Total Protein 6.8 (6.3-8.2) g/dL Albumin 4.1 (3.5-5.0) g/dL Globulin 2.7 (1.7-4.1) g/dL Albumin/Globulin Ratio 1.5 (1.0-2.8) Lipase 259 (23-300) U/L 11/16/18 Range/Units 12:54 WBC (4.5-11.0) X10^3/uL RBC (4.5-5.9) X10^6/uL Hgb (13.5-17.5) g/dL Hct (41-53) % MCV (80-100) fL MCH (26-34) PG MCHC (30-36) % RDW (11.6-14.8) % Plt Count (150-400) X10^3/uL Neut % (Auto) (50-75) % Lymph % (Auto) (25-40) % [place] % (Auto) (3-14) % Eos % (Auto) (2-4) % Baso % (Auto) (0-2) % Neut # (Auto) (0047-6899) /uL Lymph # (Auto) (4197-4337) /uL [place] # (Auto) (0-900) /uL Eos # (Auto) (0-450) /uL Baso # (Auto) (0-100) /uL PT (10.1-12.7) SECONDS INR (0.9-1.3) APTT (26.4-36.2) SECONDS Sodium (137-145) mmol/L Potassium (3.4-5.1) mmol/L Chloride (98-107) mmol/L Carbon Dioxide (22-32) mmol/L BUN (9-20) mg/dL Creatinine (0.66-1.25) mg/dL Estimated GFR (>60) mL/min BUN/Creatinine Ratio (6-22) Glucose (80-110) mg/dL Calcium (8.4-10.2) mg/dL Total Bilirubin (0.2-1.3) mg/dL AST (17-59) IU/L ALT (21-72) IU/L Alkaline Phosphatase (38-126) U/L Total Creatine Kinase (55-170) U/L CK-MB (CK-2) CK-MB (CK-2) Rel Index Troponin I 0.020 (0.01-0.034) ng/mL B-Natriuretic Peptide (<100) Total Protein (6.3-8.2) g/dL Albumin (3.5-5.0) g/dL Globulin (1.7-4.1) g/dL Albumin/Globulin Ratio (1.0-2.8) Lipase (23-300) U/L Point of Care Testing Glucose POC 106 Imaging Data Chest x-ray: Radiologist's impression: PROCEDURE: XR CHEST 1V INDICATIONS: recent heart surgery TECHNIQUE: One view of the chest was acquired. COMPARISON: [facility], , XR CHEST 1V, 10/13/2018, 10:57. FINDINGS: Surgical changes and devices: Median sternotomy wires are seen.. Lungs and pleura: There is small to moderate left pleural effusion with left lower lobe atelectasis. No gross pneumothorax. Right lung is clear. Mild pulmonary vascular congestion is seen. Mediastinum: Mediastinal contours appear normal. Heart size is enlarged. Bones and chest wall: No suspicious bony lesions. Overlying soft tissues appear unremarkable. IMPRESSION: Interval cardiac surgery. Cardiomegaly and mild congestion. Small to moderate left pleural effusion with left lower lobe atelectasis. No gross pneumothorax. Dictated by: Donny Che M.D. on 11/16/2018 at 11:07 ECG Data Attestation: I personally reviewed and interpreted this ECG as follows: Prior ECG tracings: available for review Interpretation: Low voltage EKG sinus rhythm rate [address] changes, T-wave inversions noted in V3 not seen on previous EKG. Previous EKG was prior to his CABG. [facility] Narrative Medical decision making narrative: Patient and no time had any chest pain. He is overall feeling much better. Initial troponin indeterminate repeat troponin trending downward significantly. It sounds the patient had a vasovagal reaction. He has no focal deficits. Recommended following up with his equity trader. At this time he feels ready and able to go home. Discharge Plan Departure Patient Disposition: Home Clinical Impression: Vasovagal syncope Discharge Date/Time: 11/16/18 13:47 Interventions: ED Discharge Assessment Last Done: 11/16/18 13:46 Instructions: DI for Syncope in Adults (Fainting) Activity Restrictions/Additional Instructions: *You have been diagnosed with vasovagal reaction, fainting episode *What to do: Likely due to combination of medication, motion sickness *Continue to take medications as directed *Follow up with your primary care provider in 2-3 days *Return to ER if you should have chest pain heart palpitations passing out [or] any new, worsening or concerning symptoms Prescriptions: No Action atorvastatin [Lipitor] 80 MG tablet 80 mg PO BEDTIME Qty: 0 RF: 0 metoprolol succinate 50 MG tablet extended release 24 hr 25 mg PO DAILY Qty: 0 RF: 0 nitroglycerin [Nitrostat] 0.4 MG tablet, sublingual 0.4 mg Sublingual PRN PRN (Reason: Chest Pain) Qty: 0 RF: 0 omeprazole 20 MG capsule,delayed release(DR/EC) 20 mg PO DAILY Qty: 0 RF: 0 clopidogrel [Plavix] 75 MG tablet 75 mg PO DAILY Qty: 0 RF: 0 aspirin 81 MG tablet,delayed release (DR/EC) 81 mg PO DAILY Qty: 0 RF: 0 tamsulosin [Flomax] 0.4 MG capsule,extended release 24hr 0.4 mg PO QPM Qty: 0 RF: 0 isosorbide dinitrate [Isordil Titradose] 5 MG tablet 5 mg PO BID Qty: 0 RF: 0 Referrals: Jay Zepeda MD [Primary Care Provider] -
[2018-11-16 10:56] VITALS: BP 123/74; PULSE 61; RESP 14; TEMP 35.9; O2SAT 98; BMI 24.3
[2018-11-16 11:04] LABS: Add Manual Diff / Slide Review NO; Basophils Absolute Auto 100 /uL (0-100); Basophils Percent Auto 2.2 % (0-2); Eosinophils Absolute Auto 100 /uL (0-450); Eosinophils Percent Auto 2.7 % (2-4); Hematocrit 35.9 % (41-53); Lymphocytes Absolute Auto 900 /uL (1100-4500); Lymphocytes Percent Auto 15.8 % (25-40); Mean Corpuscular HGB Conc 33.6 % (30-36); Mean Corpuscular Hemoglobin 32.6 PG (26-34); Monocytes Absolute Auto 500 /uL (0-900); Monocytes Percent Auto 8.8 % (3-14); Neutrophils Absolute Auto 3800 /uL (1500-7000); Neutrophils Percent Auto 70.5 % (50-75); Platelet Count 351 X10^3/uL (150-400); White Blood Cell Count 5.4 X10^3/uL (4.5-11.0)
[2018-11-16 11:11] LABS: INR 1.6 (0.9-1.3); Prothrombin Time 18.5 SECONDS (10.1-12.7)
[2018-11-16 11:14] LABS: PTT Partial Thromboplastin Tim 28 SECONDS (26.4-36.2)
[2018-11-16 11:16] LABS: Alanine Aminotransferase 41 IU/L (21-72); Albumin 4.1 g/dL (3.5-5.0); Albumin Globulin Ratio 1.5 (1.0-2.8); Alkaline Phosphatase 83 U/L (38-126); Aspartate Aminotransferase 27 IU/L (17-59); BUN Creatinine Ratio 15.8 (6-22); Bilirubin Total 0.4 mg/dL (0.2-1.3); Blood Urea Nitrogen 19 mg/dL (9-20); Carbon Dioxide 27 mmol/L (22-32); Chloride 102 mmol/L (98-107); Creatine Kinase 37 U/L (55-170); Estimated Glomerular Filt Rate 58.7 mL/min (>60); Globulin 2.7 g/dL (1.7-4.1); Glucose 115 mg/dL (80-110); HEMOLYSIS < 15 (0-50); Lipase 259 U/L (23-300); Potassium 3.9 mmol/L (3.4-5.1); Sodium 139 mmol/L (137-145); Total Protein 6.8 g/dL (6.3-8.2)
[2018-11-16] MEDS: SODIUM CHLORIDE 0.9% 1,000 ML 150 ML IV (11:17)
[2018-11-16 11:27] LABS: Troponin I 0.069 ng/mL (0.01-0.034)
[2018-11-16 11:30] VITALS: BP 101/62; PULSE 57; RESP 17; O2SAT 98
[2018-11-16 11:37] LABS: B Type Natriuretic Peptide < 100 (<100)
[2018-11-16 12:01] VITALS: BP 107/61; PULSE 57; RESP 16; O2SAT 97
[2018-11-16 12:30] VITALS: BP 116/65; PULSE 57; RESP 16; O2SAT 98
[2018-11-16 13:00] VITALS: BP 120/66; PULSE 59; RESP 14; O2SAT 95
[2018-11-16 13:30] VITALS: BP 118/70; PULSE 58; RESP 12; O2SAT 94
--- NOTE | 2018-11-16 19:40 | ED_ITS ---
HPI - Neuro Symptoms/Deficit General Chief Complaint: Syncope Stated Complaint: Dypohorectic vomiting Time Seen by Provider: 11/16/18 10:50 Source: family and EMS Mode of arrival: EMS Limitations: no limitations History of Present Illness HPI Narrative: Patient is a 78-year-old male who presents after near syncopal episode. He had CABG 3 weeks ago at [facility]. Today he was getting his toenails trimmed. He said he was wearing his coat which was very hot he also gets a motion sickness in the car he was already feeling nauseated when he sat down. He got extremely hot and clammy almost passed out. They have been adjusting some of his medications since surgery. Including the Toprol Lasix and tamsulosin. He said he took tamsulosin last night, thought maybe he was a little dehydrated. He denies any peripheral edema swelling shortness of breath or orthopnea. He overall is feeling much better. He had no facial drooping slurring of speech or focal deficits. He just got extremely lightheaded and vomited once. He no longer feels nauseated. No abdominal pain. Onset (ago): minute(s) Related Data Home Medications Medication Instructions Recorded Confirmed atorvastatin [Lipitor] 80 mg PO BEDTIME #0 09/23/16 11/16/18 metoprolol succinate 25 mg PO DAILY #0 10/08/16 11/16/18 nitroglycerin [Nitrostat] 0.4 mg SUBLINGUAL PRN PRN #0 10/08/16 11/16/18 aspirin 81 mg PO DAILY #0 10/20/17 11/16/18 clopidogrel [Plavix] 75 mg PO DAILY #0 10/20/17 11/16/18 isosorbide dinitrate [Isordil 5 mg PO BID #0 10/20/17 11/16/18 Titradose] omeprazole 20 mg PO DAILY #0 10/20/17 11/16/18 tamsulosin [Flomax] 0.4 mg PO QPM #0 10/20/17 11/16/18 Allergies Allergy/AdvReac Type Severity Reaction Status Date / Time No Known Allergies Allergy Verified 11/16/18 11:02 Review of Systems Review of Systems ROS Unobtainable: All systems reviewed & are unremarkable except as noted in HPI and below Constitutional Denies chills, Denies fever(s), Denies lethargy and Denies weakness Eyes Denies change in vision, Denies eye discharge, Denies irritation and Denies loss of vision ENT Ears, Nose, Mouth, and Throat: Denies dizziness Cardiovascular Reports as per HPI, Denies dyspnea and Denies dyspnea on exertion Respiratory Denies cough, Denies dyspnea, Denies dyspnea on exertion and Denies wheezing Gastrointestinal Gastrointestinal: Reports vomiting (x1) Genitourinary Denies hematuria, Denies flank pain, Denies urinary incontinence and Denies urinary urgency Musculoskeletal Denies back pain, Denies muscle weakness, Denies numbness and Denies tingling Integumentary/Breasts Denies pruritus, Denies erythema, Denies rash and Denies wounds Neurologic Reports as per HPI, Denies dizziness, Denies loss of vision, Denies numbness, Denies tingling and Denies weakness Allergic/Immunologic Denies wheezing [facility] Medical History BPH (benign prostatic hyperplasia) (Acute) Coronary artery disease (Acute) Surgical History S/P CABG x 3 (Acute) Social History Smoking Status: Former smoker Social History Smoking Status: Former smoker Exam Initial Vital Signs Initial Vital Signs: Vital Signs Temperature 96.7 F L 11/16/18 10:56 Pulse Rate 61 11/16/18 10:56 Respiratory Rate 14 11/16/18 10:56 Blood Pressure 123/74 11/16/18 10:56 Pulse Oximetry 98 11/16/18 10:56 GENERAL: Alert well-appearing male slightly diaphoretic but does seem to be improving HEENT: Head atraumatic,EOMI, pupils reactive CARDIOVASCULAR: Regular rate and rhythm without murmurs, rubs or gallops. RESPIRATORY: Breath sounds equal bilaterally, no wheezes rales or rhonchi. ABDOMEN: Soft, nontender. Normoactive bowel sounds all 4 quadrants. No guarding or rebound. EXTREMITIES: Normal range of motion, no clubbing or edema. Neurovascularly intact NEUROLOGICAL: Alert and oriented x4.Normal gait and speech. Cranial nerves II through XII grossly intact. Good [id number], good [id number], strength equal bilaterally, no dysarthria or aphasia, sensation in tact to soft touch bilaterally, no visual changes, no facial droop SKIN: Contusion noted all across chest. Patient says it seems to be healing. He also has incision site with 3 sutures is also no sign of infection no erythema or pus. Course Orders Ordered: ED Orders 11/16/18 10:42 B Type Natriuretic Peptide Stat Complete Blood Count AUTO DIFF Stat Comprehensive Metabolic Panel Stat Lipase Stat Partial Thromboplastin Time Stat Prothrombin Time INR Stat Troponin & CK Cardiac Panel Stat 11/16/18 10:52 XR chest 1V Stat 11/16/18 12:54 Troponin I Stat Discontinued Medications Sodium Chloride (Normal Saline 0.9%) 1,000 mls @ 150 mls/hr IV CONT PADDY Last Infusion: 11/16/18 14:27 Dose: 0 mls/hr Admin: 11/16/18 11:17 Dose: 150 mls/hr Vital Signs - 8 hr 11/16/18 12:01 11/16/18 12:30 11/16/18 13:00 Pulse Rate 57 L 57 L 59 L Respiratory Rate 16 16 14 Blood Pressure [Right Arm] 107/61 116/65 120/66 Pulse Oximetry 97 98 95 11/16/18 13:30 Pulse Rate 58 L Respiratory Rate 12 Blood Pressure [Right Arm] 118/70 Pulse Oximetry 94 MDM - Neuro Symptoms/Deficit Lab Data Attestation: I reviewed the patient's lab results. Result diagrams: 11/16/18 10:42 11/16/18 10:42 Lab Results 11/16/18 11/16/18 11/16/18 Range/Units 10:42 10:42 10:42 WBC 5.4 (4.5-11.0) X10^3/uL RBC 3.70 L (4.5-5.9) X10^6/uL Hgb 12.0 L (13.5-17.5) g/dL Hct 35.9 L (41-53) % MCV 97.0 (80-100) fL MCH 32.6 (26-34) PG MCHC 33.6 (30-36) % RDW 16.0 H (11.6-14.8) % Plt Count 351 (150-400) X10^3/uL Neut % (Auto) 70.5 (50-75) % Lymph % (Auto) 15.8 L (25-40) % [place] % (Auto) 8.8 (3-14) % Eos % (Auto) 2.7 (2-4) % Baso % (Auto) 2.2 H (0-2) % Neut # (Auto) 3800 (2244-6802) /uL Lymph # (Auto) 900 L (8076-9539) /uL [place] # (Auto) 500 (0-900) /uL Eos # (Auto) 100 (0-450) /uL Baso # (Auto) 100 (0-100) /uL PT 18.5 H (10.1-12.7) SECONDS INR 1.6 H (0.9-1.3) APTT 28 (26.4-36.2) SECONDS Sodium 139 (137-145) mmol/L Potassium 3.9 (3.4-5.1) mmol/L Chloride 102 (98-107) mmol/L Carbon Dioxide 27 (22-32) mmol/L BUN 19 (9-20) mg/dL Creatinine 1.20 (0.66-1.25) mg/dL Estimated GFR 58.7 L (>60) mL/min BUN/Creatinine Ratio 15.8 (6-22) Glucose 115 H (80-110) mg/dL Calcium 9.0 (8.4-10.2) mg/dL Total Bilirubin 0.4 (0.2-1.3) mg/dL AST 27 (17-59) IU/L ALT 41 (21-72) IU/L Alkaline Phosphatase 83 (38-126) U/L Total Creatine Kinase 37 L (55-170) U/L CK-MB (CK-2) TNP CK-MB (CK-2) Rel Index TNP Troponin I 0.069 H (0.01-0.034) ng/mL B-Natriuretic Peptide < 100 (<100) Total Protein 6.8 (6.3-8.2) g/dL Albumin 4.1 (3.5-5.0) g/dL Globulin 2.7 (1.7-4.1) g/dL Albumin/Globulin Ratio 1.5 (1.0-2.8) Lipase 259 (23-300) U/L 11/16/18 Range/Units 12:54 WBC (4.5-11.0) X10^3/uL RBC (4.5-5.9) X10^6/uL Hgb (13.5-17.5) g/dL Hct (41-53) % MCV (80-100) fL MCH (26-34) PG MCHC (30-36) % RDW (11.6-14.8) % Plt Count (150-400) X10^3/uL Neut % (Auto) (50-75) % Lymph % (Auto) (25-40) % [place] % (Auto) (3-14) % Eos % (Auto) (2-4) % Baso % (Auto) (0-2) % Neut # (Auto) (3647-9798) /uL Lymph # (Auto) (7233-9088) /uL [place] # (Auto) (0-900) /uL Eos # (Auto) (0-450) /uL Baso # (Auto) (0-100) /uL PT (10.1-12.7) SECONDS INR (0.9-1.3) APTT (26.4-36.2) SECONDS Sodium (137-145) mmol/L Potassium (3.4-5.1) mmol/L Chloride (98-107) mmol/L Carbon Dioxide (22-32) mmol/L BUN (9-20) mg/dL Creatinine (0.66-1.25) mg/dL Estimated GFR (>60) mL/min BUN/Creatinine Ratio (6-22) Glucose (80-110) mg/dL Calcium (8.4-10.2) mg/dL Total Bilirubin (0.2-1.3) mg/dL AST (17-59) IU/L ALT (21-72) IU/L Alkaline Phosphatase (38-126) U/L Total Creatine Kinase (55-170) U/L CK-MB (CK-2) CK-MB (CK-2) Rel Index Troponin I 0.020 (0.01-0.034) ng/mL B-Natriuretic Peptide (<100) Total Protein (6.3-8.2) g/dL Albumin (3.5-5.0) g/dL Globulin (1.7-4.1) g/dL Albumin/Globulin Ratio (1.0-2.8) Lipase (23-300) U/L Point of Care Testing Glucose POC 106 Imaging Data Chest x-ray: Radiologist's impression: PROCEDURE: XR CHEST 1V INDICATIONS: recent heart surgery TECHNIQUE: One view of the chest was acquired. COMPARISON: [facility], , XR CHEST 1V, 10/13/2018, 10:57. FINDINGS: Surgical changes and devices: Median sternotomy wires are seen.. Lungs and pleura: There is small to moderate left pleural effusion with left lower lobe atelectasis. No gross pneumothorax. Right lung is clear. Mild pulmonary vascular congestion is seen. Mediastinum: Mediastinal contours appear normal. Heart size is enlarged. Bones and chest wall: No suspicious bony lesions. Overlying soft tissues appear unremarkable. IMPRESSION: Interval cardiac surgery. Cardiomegaly and mild congestion. Small to moderate left pleural effusion with left lower lobe atelectasis. No gross pneumothorax. Dictated by: Donny Che M.D. on 11/16/2018 at 11:07 ECG Data Attestation: I personally reviewed and interpreted this ECG as follows: Prior ECG tracings: available for review Interpretation: Low voltage EKG sinus rhythm rate [address] changes, T-wave inversions noted in V3 not seen on previous EKG. Previous EKG was prior to his CABG. [facility] Narrative Medical decision making narrative: Patient and no time had any chest pain. He is overall feeling much better. Initial troponin indeterminate repeat troponin trending downward significantly. It sounds the patient had a vasovagal reaction. He has no focal deficits. Recommended following up with his ca rdiologist. At this time he feels ready and able to go home. Discharge Plan Departure Patient Disposition: Home Clinical Impression: Vasovagal syncope Discharge Date/Time: 11/16/18 13:47 Interventions: ED Discharge Assessment Last Done: 11/16/18 13:46 Instructions: DI for Syncope in Adults (Fainting) Activity Restrictions/Additional Instructions: *You have been diagnosed with vasovagal reaction, fainting episode *What to do: Likely due to combination of medication, motion sickness *Continue to take medications as directed *Follow up with your primary care provider in 2-3 days *Return to ER if you should have chest pain heart palpitations passing out [or] any new, worsening or concerning symptoms Prescriptions: No Action atorvastatin [Lipitor] 80 MG tablet 80 mg PO BEDTIME Qty: 0 RF: 0 metoprolol succinate 50 MG tablet extended release 24 hr 25 mg PO DAILY Qty: 0 RF: 0 nitroglycerin [Nitrostat] 0.4 MG tablet, sublingual 0.4 mg Sublingual PRN PRN (Reason: Chest Pain) Qty: 0 RF: 0 omeprazole 20 MG capsule,delayed release(DR/EC) 20 mg PO DAILY Qty: 0 RF: 0 clopidogrel [Plavix] 75 MG tablet 75 mg PO DAILY Qty: 0 RF: 0 aspirin 81 MG tablet,delayed release (DR/EC) 81 mg PO DAILY Qty: 0 RF: 0 tamsulosin [Flomax] 0.4 MG capsule,extended release 24hr 0.4 mg PO QPM Qty: 0 RF: 0 isosorbide dinitrate [Isordil Titradose] 5 MG tablet 5 mg PO BID Qty: 0 RF: 0 Referrals: Jay Zepeda MD [Primary Care Provider] -
== END 2018-11-16 13:47 | disposition home or self-care (01) ==
PROVIDERS: Emergency Provider Emergency Medicine; Family Provider Family Medicine; PCP Family Medicine
DX: R55 Syncope and collapse (principal)
CPT/HCPCS: 36415; 36591; 71045; 80053; 82550; 83690; 83880; 84484; 85025; 85610; 85730; 93005; 96360; 96361; 99284